=== PATIENT | female | born 1960 | race Caucasian/White ===

== ENCOUNTER 2016-12-25 21:24 | Emergency (ER) | payer MEDICARE, MEDICAID ==
[2016-12-25 22:29] VITALS: BP 140/83
--- NOTE | 2016-12-25 22:54 | UC ---
Throat Pain/Nasal Eder HPI - History of Current Complaint Chief Complaint: UCGeneralIllness Stated Complaint: THROAT Time Seen by Provider: 12/25/16 22:23 Hx Obtained From: Patient ?: No Onset/Duration: Sudden Onset - yesterday, Worse Since - today. Cough: Nonproductive - with putting on a mask. Associated Signs & Symptoms: Positive: Dysphagia, Nasal Discharge - with putting on a mask.. Negative: Hoarseness, Sinus Discomfort Related History: Seasonal Allergies, Smoking - Epiglottits Risk Factors Epiglottis Risk Factors: Negative - Allergies/Home Medications Allergies/Adverse Reactions: Allergies Allergy/AdvReac Type Severity Reaction Status Date / Time Cortisone Allergy Itching Verified 12/25/16 22:29 Tramadol Allergy Rash Verified 12/25/16 22:29 Home Medications: Home Medications Guaifenesin [Guaifenesin ER] 1,200 mg PO BID PRN 12/25/16 [History Confirmed 06/04] Metformin HCl [Glucophage] 500 mg PO BID 12/25/16 [History Confirmed 12/25/16] PMH/Surg Hx/FS Hx/Imm Hx Endocrine History Of: Denies: Diabetes, Thyroid Disease Cardiovascular History Of: Reports: Hypertension Respiratory History Of: Denies: Asthma - Surgical History Surgical History: Yes Surgery Procedure, Year, and Place: HYSTERECTOMY. OOPHERECTOMY. HAND SX (MULTI ). BACK SX. FEMALE SX - Family History Known Family History: Positive: Diabetes Negative: Cardiac Disease, Hypertension - Social History Occupation: Employed Part-time Lives: Alone Alcohol Use: Rare Substance Use Type: None Smoking Status (MU): Heavy Every Day Tobacco Smoker Type: Cigarettes Amount Used/How Often: 1 pack per day Length of Time of Smoking/Using Tobacco: 30 YRS Have You Smoked in the Last Year: Yes Household Exposure Type: Cigarettes Review of Systems ENT: Sore Throat - worse on the right side. All Other Systems Reviewed And Are Negative: Yes Physical Exam Triage Information Reviewed: Yes Appearance: Well-Appearing, No Pain Distress, Well-Nourished Vital Signs: Initial Vital Signs Temp 99.6 F 12/25/16 22:21 Pulse 91 12/25/16 22:21 Resp 20 12/25/16 22:21 BP 140/83 12/25/16 22:21 Pulse Ox 96 12/25/16 22:21 Vital Signs Reviewed: Yes Eyes: Positive: Conjunctiva Inflamed ENT: Positive: Pharyngeal erythema, TMs normal Neck: Positive: Supple, Nontender Respiratory: Positive: Lungs clear Cardiovascular Exam: Normal Musculoskeletal Exam: Normal Neurological Exam: Normal Psychological Exam: Normal Skin Exam: Normal Throat Pain/Nasal Course/Dx - Differential Dx/Diagnosis Differential Diagnosis/HQI/PQRI: Laryngitis, Pharyngitis, URI Provider Diagnoses: Acute pharyngitis Discharge - Discharge Plan Condition: Stable Disposition: HOME Patient Education Materials: Pharyngitis (ED) Referrals: SUSANNAH Echevarria [Primary Care Provider] - 5 Days (recheck on blood pressure.)
== END 2016-12-25 23:06 | disposition home or self-care (01) ==
LOC: UCCORT 21:24
DX: J02.9 Acute pharyngitis, unspecified (principal); R09.81 Nasal congestion; I10 Essential (primary) hypertension; Z88.5 Allergy status to narcotic agent; F17.210 Nicotine dependence, cigarettes, uncomplicated
CPT/HCPCS: 87651; 99211; G0463